=== PATIENT | female | born 1955 | race Caucasian/White ===

== ENCOUNTER → 2017-05-30 | Outpatient (CLI) | payer OTHER ==
--- NOTE | ~2017-05-30 | MY26 ---
[facility] A Service of [facility] & [facility] RADIOLOGY TEXT RESULTS PATIENT: CJ ALCOCER LOCATION: [facility] : 59 UNIT #: [id number] AGE: [address]: Rosio Lopez MD SEX: F ORDER DR: [id number] [facility] [address] [place], [place] [address] [id number] O MR#: [id number] Acc #: [id number] NAME: CJ ALCOCER : 1955 SEX: F STUDY DATE/TIME: 05/30/2017 15:02 UNIT: [facility] ROOM: STUDY DESCRIPTION: [facility] W/ CAD BILAT Attending Physician: Rosio Lopez M.D. Ordering Physician: Rosio Lopez M.D. Primary Care Physician: Rosio Lopez M.D. MEDICAL IMAGING REPORT This report is preliminary unless electronic signature is present EXAM Unilateral left digital diagnostic mammogram with CAD device 05/30/2017. HISTORY Six-month followup left breast microcalcifications. FINDINGS Unilateral left digital diagnostic mammogram was performed in craniocaudal, mediolateral oblique and mediolateral projections with magnification views of the calcifications in both craniocaudal and mediolateral oblique projections. The calcifications are stable compared with 11/25/2016. No suspicious mass is seen. The films have been reviewed by an FDA-approved CAD device. Followup bilateral mammogram is recommended in 6 months. IMPRESSION Stable microcalcifications in the left breast compared with 11/25/2016. Bilateral mammogram is recommended in 6 months. Patients over the age of 40 are entered into a reminder system with target due date for the next mammogram. A result letter will also be sent to the patient. BIRADS: 3 Probably benign finding; short interval followup suggested. Dictated by... Du Wolfe M.D. THIS IS AN ELECTRONICALLY VERIFIED REPORT Du Wolfe M.D. at 06/02/2017 7:30 AM KRT/johanne TD: 05/31/2017 07:32 [facility] A Service of [facility] & [facility] RADIOLOGY TEXT RESULTS PATIENT: CJ ALCOCER LOCATION: [facility] #: [id number] : 59 UNIT #: [id number] AGE: [address]: Rosio Lopez MD SEX: F ORDER DR: JOB #: [id number] MEDICAL IMAGING REPORT Page 1 of 1 COPY
== END | disposition home or self-care (01) ==
LOC: CMAM 05-23 12:00
DX: R92.8 Other abnormal and inconclusive findings on diagnostic imaging of breast (principal); R92.1 Mammographic calcification found on diagnostic imaging of breast; R92.0 Mammographic microcalcification found on diagnostic imaging of breast
CPT/HCPCS: G0204